=== PATIENT | female | born 1980 | race Caucasian/White ===

== ENCOUNTER 2018-01-15 10:54 | Emergency (ER) | payer OTHER, SELFPAY ==
[2018-01-15 12:29] LABS: Pregnancy Test - Urine (BHCG) Negative (Negative); Pregu Control Background? CLEAR/WHITE (CLR/WHITE); Pregu Control Bar Appear? YES (CONTROL BAR); Specific Gravity 1.014 (1.002-1.036)
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
[2018-01-15] MEDS ORDERED: Ketorolac Tromethamine 60 MG/2 ML VIAL ONE (13:28)
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
== END 2018-01-15 13:55 | disposition home or self-care (01) ==
LOC: NAV ERS 10:54
DX: M54.6 Pain in thoracic spine (principal); M54.2 Cervicalgia; F17.200 Nicotine dependence, unspecified, uncomplicated; Z79.899 Other long term (current) drug therapy; V43.54XA Car driver injured in collision with van in traffic accident, initial encounter
CPT/HCPCS: 72072; 72125; 81025; 96372; J1885